=== PATIENT | male | born 1960 | race Caucasian/White ===

== ENCOUNTER → 2018-01-23 | Outpatient (CLI) | payer MEDICARE ==
[~2018-01-23] MED LIST: ASCO1500 PO; CO Q10 PO; FISH OIL PO; GREEN TEA EXTRACT PO; LUTEIN-ZEAXANTHIN PO; None per pt; OMEGA 3 PO; OXYC-302 PO; SAW PALMETTO PO; VITAMIN A PO; VITAMIN B5 PO; VITAMIN C PO; hemp oil PO
== END | disposition home or self-care (01) ==
LOC: STAR 14:12
PROVIDERS: ATTEND Urology
DX: Z01.818 Encounter for other preprocedural examination (principal); S29.9XXA Unspecified injury of thorax, initial encounter; X58.XXXA Exposure to other specified factors, initial encounter; Y93.89 Activity, other specified; Y92.89 Other specified places as the place of occurrence of the external cause; Y99.8 Other external cause status
CPT/HCPCS: 71046

== ENCOUNTER 2018-01-28 10:19 | Observation (INO) | payer MEDICARE ==
[~2018-01-28] VITALS: Ht 175.3 cm; Wt 86.7 kg
[2018-01-28] MEDS ORDERED: LACTATED RINGERS 1,000 ML IV SCH (10:43)
[2018-01-28] MEDS ORDERED: LIDOCAINE-MPF 1%, 2ML INFIL ONE (11:00)
[2018-01-28] MEDS ORDERED: FENTANYL PF 250 MCG/5ML ONE (12:19)
[2018-01-28] MEDS ORDERED: CEFAZOLIN 1,000 MG ONE (12:21)
[2018-01-28] MEDS ORDERED: LIDOCAINE GEL 2%, 5ML ONE (12:21)
[2018-01-28] MEDS ORDERED: PROPOFOL 10 MG/ML, 20ML ONE (12:21)
[2018-01-28] MEDS ORDERED: ONDANSETRON 2MG/ML, 2ML ONE (12:21)
[2018-01-28] MEDS ORDERED: DEXAMETHASONE 4 MG/ML, 1ML ONE (12:21)
[2018-01-28] MEDS ORDERED: CIPROFLOXACIN/PMX 400MG/200ML 200 ML ONE (12:23)
[2018-01-28] MEDS ORDERED: ONDANSETRON 2MG/ML, 2ML IV PRN (14:30)
[2018-01-28] MEDS ORDERED: LORazepam 2 MG/ML, 1ML IVPush PRN (14:30)
[2018-01-28] MEDS ORDERED: ONDANSETRON 2MG/ML, 2ML IVPush PRN (14:30)
[2018-01-28] MEDS ORDERED: FENTANYL PF 100 MCG/2ML IV PRN (14:30)
[2018-01-28] MEDS ORDERED: ACETAMINOPHEN 325 MG TABLET PO PRN (14:30)
[2018-01-28] MEDS ORDERED: OXYcodone/APAP 5/325MG TABLET PO PRN (14:30)
[2018-01-28] MEDS ORDERED: ONDANSETRON ODT 8 MG PO PRN (14:30)
[2018-01-28] MEDS ORDERED: PROMETHAZINE 25 MG/ML, 1ML IV PRN ×2 (14:30→15:00)
[2018-01-28] MEDS ORDERED: PROMETHAZINE 25 MG SUPP PR PRN (14:30)
[2018-01-28] MEDS ORDERED: MEPERIDINE/PF 25MG/0.5ML IVPush PRN (14:30)
[2018-01-28] MEDS ORDERED: MORPHINE SULFATE 4 MG/ML, 1ML IVPush PRN (14:30)
[2018-01-28] MEDS ORDERED: OPIUM/BELLADONNA SUPP.RECT 16.2-30 MG PR PRN (14:30)
[2018-01-28] MEDS ORDERED: OXYcodone 5 MG/5 ML ORAL.SOL UDC PO PRN (14:30)
[2018-01-28] MEDS ORDERED: ACETAMINOPHEN 650 MG/20.3 ML UDC ONE (14:52)
[2018-01-28] MEDS ORDERED: OXYcodone 5 MG/5 ML ORAL.SOL UDC ONE (14:52)
[2018-01-28] MEDS ORDERED: PROMETHAZINE 25 MG/ML, 1ML ONE (14:56)
[2018-01-28] MEDS ORDERED: SUCCINYLCHOLINE 20 MG/ML, 10ML ONE (15:20)
[2018-01-28 16:00] VITALS: BP 140/85
[2018-01-28] MEDS: POTASSIUM CHLORIDE 20 MEQ in D5%-0.9% NACL 1,000 ML IV SCH (16:43)
[2018-01-28 19:18] VITALS: BP 130/78
[2018-01-29 00:10] VITALS: BP 123/78
[2018-01-29] MEDS ORDERED: CIPROFLOXACIN/PMX 400MG/200ML 200 ML IVPB SCH (00:30)
[2018-01-29 03:33] VITALS: BP 117/60
[2018-01-29] MEDS: POTASSIUM CHLORIDE 20 MEQ in D5%-0.9% NACL 1,000 ML IV SCH (03:38)
[2018-01-29 05:29] LABS: ANION GAP 8 mmol/L (5-15); CALCIUM 8.6 mg/dL (8.5-10.1); CHLORIDE 106 mmol/L (98-107); CREATININE 1.17 mg/dL (0.7-1.3)
[2018-01-29 07:11] VITALS: BP 100/52
== END 2018-01-29 12:20 | disposition home or self-care (01) ==
LOC: OUT 10:19 → ORIP 14:20 → 4NOR 15:50 → DCLOUNGE 01-29 12:05
PROVIDERS: ADMIT Urology; ATTEND Urology
DX: N40.0 Benign prostatic hyperplasia without lower urinary tract symptoms (principal); N21.0 Calculus in bladder
CPT/HCPCS: 36415; 52630; 80048; 85018; 88305; 96365; G0378; J0330; J0690; J0744; J1100; J2405; J2550; J2704; J3010; J3480; J3490; J7042; J7120